=== PATIENT | male | born 2000 | race African-American/Black ===

== ENCOUNTER 2020-04-28 10:26 | Emergency (ER) | payer SELFPAY ==
[~2020-04-28] VITALS: Ht 180.3 cm; Wt 84.1 kg
[2020-04-28 10:30] VITALS: TEMP 98
[2020-04-28] MEDS ORDERED: ZOFRAN ODT8 MG PO (10:45)
[2020-04-28 11:07] LABS: BASO % 0.7 % (0.0-2.0); EOS # 0.1 (0.0-0.7); EOS % 1.4 % (0-4.0); GRAN # 2.2 (1.4-6.5); GRAN % 51.1 % (42.2-75.2); HEMATOCRIT 43.8 % (42.0-52.0); HEMOGLOBIN 14.7 g/dl (13.5-18.0); LYMPH # 1.7 (1.2-3.4); LYMPH % 39.2 % (20.0-51.0); MEAN CELL VOLUME 84 fl (80.0-100.0); MEAN CORPUSCULAR HEMOGLOBIN 28 pg (27.0-31.0); MEAN CORPUSCULAR HGB CONC 34 g/dl (33.0-37.0); MEAN PLATELET VOLUME 11.5 fl (7.4-10.4); MONO # 0.3 (0.1-0.6); MONO % 7.4 % (1.7-9.3); PLATELET COUNT 149 K/mm3 (130-400); RED BLOOD COUNT 5.24 M/mm3 (4.20-5.60); REDCELL DISTRIBUTION WIDTH-CV 12.5 % (11.5-14.5)
[2020-04-28 11:19] LABS: ALANINE AMINOTRANSFERASE 26 U/L (4-49); ALBUMIN 4.2 gm/dL (3.5-5.0); ALKALINE PHOSPHATASE 89 U/L (50-136); ANION GAP 6 mmol/L (7-16); AST,SGOT 28 U/L (15-37); BILIRUBIN,TOTAL 0.8 mg/dL (0.0-1.0); BLOOD UREA NITROGEN 12 mg/dL (9-20); C-REACTIVE PROTEIN < 0.5 mg/dL (0.0-0.9); CALCIUM 9.3 mg/dL (8.4-10.2); CARBON DIOXIDE 25 mmol/L (22-30); CHLORIDE 107 mmol/L (98-107); CREATININE, serum 0.92 (0.66-1.25); GLUCOSE 93 mg/dL (74-106); LIPASE 62 U/L (23-300); POTASSIUM 4.1 mmol/L (3.4-5.0); SODIUM 139 mmol/L (137-145); TOTAL PROTEIN 7.2 gm/dL (6.4-8.2)
[2020-04-28 11:50] VITALS: BP 150/93; PULSE 63
== END 2020-04-28 11:50 | disposition home or self-care (01) ==
LOC: COL.ER 10:26
PROVIDERS: Emergency Medicine
DX: R10.9 Unspecified abdominal pain (principal); R11.2 Nausea with vomiting, unspecified; R19.7 Diarrhea, unspecified
CPT/HCPCS: C9113; J1885; J2405; J7030

== ENCOUNTER 2020-08-18 20:17 | Emergency (ER) | payer SELFPAY ==
[~2020-08-18] VITALS: Ht 182.9 cm; Wt 90.9 kg
[~2020-08-18 20:17] MED LIST: ZOFRAN ODT8 MG PO
[2020-08-18 20:21] VITALS: BP 142/76; TEMP 98.6
[2020-08-18] MEDS ORDERED: PROAIR HFA0.09 MG/AC IH (21:59)
[2020-08-18] MEDS ORDERED: PROTONIX20 MG PO (21:59)
[2020-08-18] MEDS ORDERED: ZOFRAN ODT4 MG PO (21:59)
[2020-08-18 22:04] VITALS: PULSE 76
== END 2020-08-18 22:05 | disposition home or self-care (01) ==
LOC: COL.ER 20:17
DX: K21.9 Gastro-esophageal reflux disease without esophagitis (principal)

== ENCOUNTER → 2020-09-19 | Outpatient (CLI) | payer SELFPAY ==
[~2020-09-19] MED LIST changes: +PROAIR HFA0.09 MG/AC IH; +PROTONIX20 MG PO; +ZOFRAN ODT4 MG PO
== END ==
LOC: ZCOL.LAB 21:49
DX: B34.9 Viral infection, unspecified (principal); Z20.822 Contact with and (suspected) exposure to COVID-19; R19.7 Diarrhea, unspecified

== ENCOUNTER 2020-09-27 01:13 | Emergency (ER) | payer SELFPAY ==
[~2020-09-27] VITALS: Ht 182.9 cm; Wt 90.0 kg
[2020-09-27 01:22] VITALS: TEMP 97.9
[2020-09-27 01:52] LABS: BASO % 0.5 % (0.0-2.0); EOS # 0.1 (0.0-0.7); EOS % 1.2 % (0-4.0); GRAN # 5.3 (1.4-6.5); GRAN % 64.5 % (42.2-75.2); HEMATOCRIT 46.5 % (42.0-52.0); HEMOGLOBIN 15.6 g/dl (13.5-18.0); LYMPH # 2.3 (1.2-3.4); LYMPH % 28.2 % (20.0-51.0); MEAN CELL VOLUME 83 fl (80.0-100.0); MEAN CORPUSCULAR HEMOGLOBIN 28 pg (27.0-31.0); MEAN CORPUSCULAR HGB CONC 34 g/dl (33.0-37.0); MEAN PLATELET VOLUME 11.2 fl (7.4-10.4); MONO # 0.4 (0.1-0.6); MONO % 5.4 % (1.7-9.3); PLATELET COUNT 198 K/mm3 (130-400); RED BLOOD COUNT 5.61 M/mm3 (4.20-5.60); REDCELL DISTRIBUTION WIDTH-CV 12.5 % (11.5-14.5)
[2020-09-27 02:04] LABS: ALANINE AMINOTRANSFERASE 26 U/L (4-49); ALBUMIN 4.9 gm/dL (3.5-5.0); ALKALINE PHOSPHATASE 95 U/L (50-136); ANION GAP 13 mmol/L (7-16); AST,SGOT 32 U/L (15-37); BILIRUBIN,TOTAL 0.8 mg/dL (0.0-1.0); BLOOD UREA NITROGEN 11 mg/dL (9-20); CARBON DIOXIDE 26 mmol/L (22-30); CHLORIDE 103 mmol/L (98-107); CREATININE, serum 1.14 (0.66-1.25); GLUCOSE 108 mg/dL (74-106); LIPASE 112 U/L (23-300); POTASSIUM 4.1 mmol/L (3.4-5.0); SODIUM 141 mmol/L (137-145); TOTAL PROTEIN 8.5 gm/dL (6.4-8.2)
[2020-09-27 02:05] LABS: C-REACTIVE PROTEIN < 0.5 mg/dL (0.0-0.9)
[2020-09-27 02:13] LABS: TROPONIN-I < 0.012 ng/mL (0.000-0.035)
[2020-09-27] MEDS ORDERED: PROTONIX 40MG T40 MG PO (02:43)
[2020-09-27] MEDS ORDERED: ZOFRAN ODT4 MG PO (02:43)
[2020-09-27 03:10] VITALS: BP 138/86; PULSE 76
== END 2020-09-27 03:10 | disposition home or self-care (01) ==
LOC: COL.ER 01:13
PROVIDERS: Emergency Medicine
DX: K29.70 Gastritis, unspecified, without bleeding (principal); J45.909 Unspecified asthma, uncomplicated; K21.9 Gastro-esophageal reflux disease without esophagitis; Z79.51 Long term (current) use of inhaled steroids
CPT/HCPCS: C9113; J2405; J7030

== ENCOUNTER 2023-06-09 10:18 | Emergency (ER) | payer BC ==
[~2023-06-09] VITALS: Ht 180.3 cm; Wt 90.9 kg
[~2023-06-09 10:18] MED LIST changes: +PROTONIX 40MG T40 MG PO
[2023-06-09 10:40] VITALS: BP 146/82; TEMP 98.1
[2023-06-09 12:51] LABS: STREP SCREEN NEGATIVE
[2023-06-09 13:36] VITALS: PULSE 62
== END 2023-06-09 13:37 | disposition home or self-care (01) ==
LOC: COL.ER 10:18
PROVIDERS: Emergency Medicine
DX: J02.9 Acute pharyngitis, unspecified (principal); Z20.822 Contact with and (suspected) exposure to COVID-19